=== PATIENT | male | born 2000 ===

== ENCOUNTER → 2023-07-12 06:24 | Day surgery (SDC) | payer OTHER, SELFPAY | LOC: GI 06:24 | PROVIDERS: ATTENDING PHYSICIAN Internal Medicine Gastroenterology | DX: K29.70 Gastritis, unspecified, without bleeding (principal); K31.89 Other diseases of stomach and duodenum; K90.0 Celiac disease; K44.9 Diaphragmatic hernia without obstruction or gangrene; R10.9 Unspecified abdominal pain; K30 Functional dyspepsia; R76.8 Other specified abnormal immunological findings in serum | CPT/HCPCS: 43239; 88305; 88342 ==

== ENCOUNTER → 2023-07-20 09:18 | Outpatient (REF) | payer OTHER, SELFPAY | LOC: HWRAD 09:18 | PROVIDERS: ATTENDING PHYSICIAN Internal Medicine Gastroenterology | DX: R79.89 Other specified abnormal findings of blood chemistry (principal) | CPT/HCPCS: 76700 ==

== ENCOUNTER 2023-10-29 14:21 | Emergency (ER) | payer OTHER, SELFPAY ==
[2023-10-29 14:25] VITALS: BP 125/64
--- NOTE | 2023-10-29 15:32 | ED.GENMED ---
History of Present Illness
General
Chief Complaint: Musculo-Skeletal Complaint
Source: patient and spouse
Exam Limitations: none
Time Seen by Provider: 10/29/23 14:38
Nursing documentation reviewed up to this point in time: agreed with
Travel History
Have you had any contact with someone who has COVID-19?: No
Do you have any symptoms of coronavirus? Fever > 100 degrees, chills, cough, shortness of breath, sore throat, loss of taste or smell, muscle aches, or headache?: No
History of Present Illness
History of Present Illness:
23-year-old male without significant past medical history presenting to the emergency department with concerns of left-sided knee discomfort after an injury while playing flag football yesterday. He claims that his foot got stuck on the ground his
body twisted felt a pop in his knee and has had significant discomfort with ambulation since. Denies any numbness weakness or additional concerns
Review of Systems
Review of Systems
Allergies reviewed?: Yes
All Other Systems: ROS reviewed and negative except as documented in HPI and ROS
Phy Exam
Physical Exam
Physical Exam:
GENERAL: Alert , in no apparent distress
EYE: pupils equal and reactive
NECK: Supple, no significant adenopathy.
ENT: o/p clr, mmm.
CARDIAC: Regular rate and rhythm .
LUNGS: Clear breath sounds bilaterally, no acute respiratory distress, no wheezes/rales/rhonchi
ABDOMEN: Soft, without focal tenderness, no r/g, no cvat
NEUROLOGICAL: Alert and oriented, no focal neuro deficits
SKIN: Warm and dry, skin intact.
MUSCULOSKELETAL: Mild swelling surrounding the knee and area just inferior to the knee anteriorly otherwise no specific bony tenderness increased discomfort with range of motion of the knee. No obvious joint laxity on exam., well perfused.
PSYCH: Normal and appropriate interaction.
Course
Orders/Labs/Results
Orders:
Orders
10/29/23 14:26
CR Knee - Left 4 Or More View* Urgent
Comment:
Reason For Exam: injury
10/29/23 15:31
Crutches-Treatment ONCE
Knee Immobilizer Left-Treatmen ONCE
Vital Signs
Initial and Last Documented VS:
Initial Vital Signs
Temp Pulse Resp BP Pulse Ox
98.1 F 93 16 125/64 98
10/29/23 14:25 10/29/23 14:25 10/29/23 14:25 10/29/23 14:25 10/29/23 14:25
Last Documented Vital Signs
Temp Pulse Resp BP Pulse Ox
98.1 F 93 16 125/64 98
10/29/23 14:25 10/29/23 14:25 10/29/23 14:25 10/29/23 14:25 10/29/23 14:25
MDM/Problems Addressed
MDM/Problems Addressed:
23-year-old male presenting to the department today with concerns of left-sided knee discomfort after twisting his knee feeling a pop yesterday while playing flag football. Here no obvious joint laxity no bony tenderness x-ray showing avulsed
fragment from the lateral proximal tibia consistent with avulsion fracture. He was placed in a knee immobilizer and advised for close orthopedic follow-up. Return precautions given.
*Critical Care Note
Total Time (30-74mins, 75-104mins- exclusive of procedures): Not Applicable
ED Attending Note
-
Portions of this chart may have been created with voice recognition software.� Occasional wrong word or��sound alike� substitutions may have occurred due to the inherent limitations of voice recognition software.
Discharge Plan
Departure
Patient Disposition: Home (Routine Discharge)
Date of Disposition: 10/29/23
Time of Disposition: 15:34
Patient with high blood pressure during this ER visit?: No
Condition: Good
Covid-19: Not Applicable
Discharge Problem:
Fracture of proximal end of left tibia
Instructions: Knee Immobilizer (DC), Lower Leg Fracture ED
Prescriptions:
No Action
dicyclomine 10 mg capsule
10 mg PO QID PRN (Reason: abdominal pain) Qty: 10 0RF
pantoprazole [Protonix] 20 mg tablet,delayed release (DR/EC)
20 mg PO DAILY Qty: 14 0RF
ondansetron 4 mg tablet,disintegrating
4 mg PO Q8H PRN (Reason: nausea and vomiting) Qty: 7 0RF
Referrals:
NONE,* [Family Provider] -
Gwyn Farrell MD [Active] - Follow up in 5-7 days
Activity Restrictions/Additional Instructions:
You came to the emergency department today with concerns of a knee injury. You are found have a small avulsed fragment from the lateral proximal tibia. Please use the knee immobilizer crutches and follow closely with orthopedics next week for
further management. In the meantime you can rest ice compress and elevate the help with symptoms.
Interventions
Interventions:
*General Assessment Last Done: 10/29/23 14:25
*ED COVID-19 Vaccine History Last Done: 10/29/23 14:25
Discharge Date and Time
Print Language: MALTESE
== END 2023-10-29 15:51 | disposition home or self-care (01) ==
LOC: EMR 14:21
PROVIDERS: EMERGENCY PHYSICIAN Emergency Medicine
DX: S82.102A Unspecified fracture of upper end of left tibia, initial encounter for closed fracture (principal); X50.1XXA Overexertion from prolonged static or awkward postures, initial encounter
CPT/HCPCS: 99283; 29505; 73564

== ENCOUNTER 2024-02-06 17:22 | Emergency (ER) | payer OTHER, SELFPAY ==
[2024-02-06 17:25] VITALS: BP 105/77
--- NOTE | 2024-02-06 18:30 | ED.GENMED ---
History of Present Illness
General
Chief Complaint: Post Operative Problem(s)
Source: patient
Exam Limitations: none
Time Seen by Provider: 02/06/24 17:39
Nursing documentation reviewed up to this point in time: agreed with
History of Present Illness
History of Present Illness:
23 yo male had ACL surgery [address] Plunkett. He noted bleeding through his dressings today. Presents wearing a long leg ROM brace with blood soaking through dressings at knee level.
Past History
Past History
ED Past Medical History: None
ED Past Surgical History: Orthopedic
Social History
Tobacco: Non-smoker
Alcohol: None
Personal: Single
Living: with family
Review of Systems
Review of Systems
Allergies reviewed?: Yes
All Other Systems: ROS reviewed and negative except as documented in HPI and ROS
Skin: Reports other (bleeding from a sutured incision lateral L knee)
Phy Exam
Physical Exam
Physical Exam:
PHYSICAL EXAMINATION:
General: no apparent distress, not acutely ill
Neuro: alert and oriented.
Psychiatric: well kept. interactive and cooperative
Musculoskeletal: Moves with ease
Skin: Warm, pink. L knee with bleeding through dressings at knee level only. Distal n/v intact
Course
Vital Signs
Initial and Last Documented VS:
Initial Vital Signs
Temp Pulse Resp BP Pulse Ox
98 F 85 16 105/77 98
02/06/24 17:25 02/06/24 17:25 02/06/24 17:25 02/06/24 17:25 02/06/24 17:25
Last Documented Vital Signs
Temp Pulse Resp BP Pulse Ox
98 F 85 16 105/77 98
02/06/24 17:25 02/06/24 17:25 02/06/24 17:25 02/06/24 17:25 02/06/24 17:25
MDM/Problems Addressed
MDM/Problems Addressed:
23 yo male had ACL surgery [address] Plunkett. He noted bleeding through his dressings today. Presents wearing a long leg ROM brace with blood soaking through dressings at knee level.
Afebrile, VSS
Dressings removed, small amount constant oozing venous blood from a sutured incision lateral knee. Area cleansed with Betadine, after injecting 2 ml Lidocaine w Epi 1%, #2 [4-0] Prolene sutures in an X fashion applied with good hemostasis.
Redressed exactly as it was with 4x4 gauze dressing, ABD dressings, cotton splinting padding and kina wraps. Place back in ROM knee brace.
Pt will contact orthopedic doctor in 2 days after the Holiday weekend to inform of today's visit for further instruction on starting P/T
*Critical Care Note
Total Time (30-74mins, 75-104mins- exclusive of procedures): Not Applicable
ED Attending Note
-
Portions of this chart may have been created with voice recognition software.� Occasional wrong word or��sound alike� substitutions may have occurred due to the inherent limitations of voice recognition software.
Discharge Plan
Departure
Patient Disposition: Home (Routine Discharge)
Date of Disposition: 02/06/24
Time of Disposition: 18:39
Patient with high blood pressure during this ER visit?: No
Condition: Good
Discharge Problem:
Post-op bleeding
Prescriptions:
No Action
dicyclomine 10 mg capsule
10 mg PO QID PRN (Reason: abdominal pain) Qty: 10 0RF
pantoprazole [Protonix] 20 mg tablet,delayed release (DR/EC)
20 mg PO DAILY Qty: 14 0RF
ondansetron 4 mg tablet,disintegrating
4 mg PO Q8H PRN (Reason: nausea and vomiting) Qty: 7 0RF
Referrals:
Gil Plunkett MD [Non-Admitting Privileges] - Follow up in 2-3 days
Activity Restrictions/Additional Instructions:
As we discussed, call Dr. Plunkett's office Wednesday and inform of today's visit.
Ask if you should continue with the plan for P/T that day.
I placed 2 stitches in the incision that was oozing.
Interventions
Interventions:
*Risk Screen - Suicide Last Done: 02/06/24 17:25
*General Assessment Last Done: 02/06/24 17:25
*Neglect/Abuse Screening Last Done: 02/06/24 17:25
ED- Fall Risk Assessment Last Done: 02/06/24 18:17
*ED COVID-19 Vaccine History Last Done: 02/06/24 18:18
*Nursing Disposition Last Done: 02/06/24 18:54
ED-Skin Assessment Last Done: 02/06/24 18:18
Discharge Date and Time
Discharge Date/Time: 02/06/24 18:54
Print Language: MARSHALLESE
== END 2024-02-06 18:54 | disposition home or self-care (01) ==
LOC: EMR 17:22
PROVIDERS: EMERGENCY PHYSICIAN Emergency Medicine; FAMILY PHYSICIAN Family Medicine
DX: L76.22 Postprocedural hemorrhage of skin and subcutaneous tissue following other procedure (principal); Y83.9 Surgical procedure, unspecified as the cause of abnormal reaction of the patient, or of later complication, without mention of misadventure at the time of the procedure
CPT/HCPCS: 35226; 99283